=== PATIENT | male | born 1995 | race Caucasian/White ===

== ENCOUNTER 2016-08-29 09:23 | Emergency (ER) | payer OTHER ==
[~2016-08-29] VITALS: Ht 185.4 cm; Wt 114.3 kg
[2016-08-29 09:27] VITALS: TEMP 36.6; Ht 185.4 cm; Wt 114.3 kg
[2016-08-29] MEDS ORDERED: VNTHFA/IN INH (09:43)
[2016-08-29] MEDS ORDERED: ONDANSETRON INJ 2 MG/ML 2 ML VIAL IV STA (09:53)
[2016-08-29] MEDS ORDERED: SODIUM CHLORIDE 0.9% 1000ML 1,000 ML IV STA (09:53)
--- NOTE | 2016-08-29 10:02 | EMERGENCY ROOM VISIT NOTE ---
History First contact with patient: 09:30 Chief Complaint: ABDOMINAL PAIN Stated Complaint: LOWER RIGHT ABDOMINAL PAIN, NAUSEA, BELCHING History of Present Illness The patient is a 21 year old male who presents to the Emergency Room with complaints of abdominal pain. The patient states his symptoms started 2 days ago. He states he initially had abdominal cramping. He states that he developed nausea yesterday. He states that this morning he felt some cramping and pain in the upper abdomen and it has since localized to the right lower quadrant. He reports nausea and belching. He rates his discomfort a 5/10. He denies any fevers. He denies any urinary symptoms. He denies any falls or injuries. The patient drank alcohol Monday night but nothing since. The patient states his last oral intake was applesauce at 2:30 AM. Review of Systems A 10 system review of systems was completed with positives and pertinent negatives listed in the HPI. Social History Smoking Status: Never Smoker Marital Status: single Occupation Status: [employer] student Current/Historical Medications Scheduled PRN Albuterol Hfa (Ventolin Hfa), 2-4 PUFFS INH Q6H PRN for Shortness of Breath Allergies Uncoded Allergies: enviromental (Allergy, Unknown, , 08/29/16) Physical Exam Vital Signs Date Time Temp Pulse Resp B/P Pulse Ox O2 Delivery O2 Flow Rate FiO2 08/29/16 13:03 91 18 152/83 100 Room Air 08/29/16 11:13 68 16 151/76 100 Room Air 08/29/16 09:27 36.6 56 20 159/104 92 Room Air Physical Exam VITALS: Vitals are noted on the nurse's note and reviewed by myself. Vital signs stable. The patient is afebrile. GENERAL: This is a 21-year-old male, in no acute distress, nondiaphoretic, well- developed well-nourished. SKIN: The skin was without rashes, erythema, edema, or bruising. There is no tenting of the skin. Capillary reflex less than 2 seconds. HEAD: Normocephalic atraumatic. EARS: External auditory canals clear, tympanic membranes pearly chang without erythema or effusion bilaterally. EYES: Pupils equal round and reactive to light and accommodation. Conjunctivae without injection, sclerae without icterus. Extraocular movements intact. NOSE: Patent, turbinates without inflammation or discharge. MOUTH: Mucous membranes moist. Tonsils are not enlarged. Pharynx without erythema or exudate. Uvula midline. Airway patent. Tongue does not deviate. NECK: Supple without nuchal rigidity. No lymphadenopathy. No thyromegaly. Cervical spine is nontender. No JVD. HEART: Regular rate and rhythm without murmurs gallops or rubs. LUNGS: Clear to auscultation bilaterally without wheezes, rales or rhonchi. No retractions or accessory muscle use. ABDOMEN: Positive bowel sounds x 4. Marked right lower quadrant tenderness. There is tenderness over McBurney's point. Positive Rovsing's. Positive rebound. Soft, without masses or organomegaly. MUSCULOSKELETAL: No muscle atrophy, erythema, or edema noted. Full range of motion in all extremities. Normal gait. Strength 5/5 throughout. NEURO: Patient was alert and oriented to person place and time. No focal neurological deficits. Medical Decision & Procedures ER Provider Diagnostic Interpretation: CT ABD/PELVIS IV AND ORAL CONT CLINICAL HISTORY: Right lower quadrant abdominal pain COMPARISON STUDY: None. TECHNIQUE: Following the IV administration of 93 mL of Optiray-320, CT scan of the abdomen and pelvis was performed from the lung bases to the proximal femurs. Images are reviewed in the axial, sagittal, and coronal planes. IV contrast was administered without complication. CT DOSE: 638.08 mGy.cm FINDINGS: Lower chest: The heart is normal in size and configuration, without pericardial effusion. The lung bases and pleural spaces are clear. Liver: The contrast-enhanced liver is normal in size, contour, and attenuation. There is no intrahepatic biliary ductal dilatation. The hepatic veins and portal veins are patent. Gallbladder: Unremarkable. Spleen: Normal in size and attenuation. Pancreas: Unremarkable. Adrenal glands: Unremarkable. Kidneys: There is symmetric renal cortical enhancement. The kidneys are normal in size without hydronephrosis. Bowel: There are no transition zones indicate bowel obstruction. There is no acute diverticulitis. There is no evidence of acute appendicitis. Peritoneum: There is no intraperitoneal free air or abdominal ascites. Vasculature: The abdominal aorta is normal in course and caliber. Adenopathy: None. Pelvic viscera: The bladder, and pelvic viscera are unremarkable. Skeletal structures: No destructive osseous lesions are seen. IMPRESSION: 1. No acute intra-abdominal or pelvic findings. 2. No evidence of bowel obstruction. No evidence of free air 3. No evidence of acute appendicitis. No evidence of acute diverticulitis. Laboratory Results 08/29/16 00:00 Red Blood Count 5.50, Mean Corpuscular Volume 86.5, Mean Corpuscular Hemoglobin 30.9, Mean Corpuscular Hemoglobin Concent 35.7, Mean Platelet Volume 10.4, Neutrophils (%) (Auto) 46.9, Lymphocytes (%) (Auto) 34.5, Monocytes (%) (Auto) 8.5, Eosinophils (%) (Auto) 9.6, Basophils (%) (Auto) 0.4, Neutrophils # (Auto) 3.12, Lymphocytes # (Auto) 2.30, Monocytes # (Auto) 0.57, Eosinophils # (Auto) 0.64, Basophils # (Auto) 0.03 08/29/16 00:00 Test 08/29/16 00:00 08/29/16 11:08 White Blood Count 6.67 K/uL (4.8-10.8) Red Blood Count 5.50 M/uL (4.7-6.1) Hemoglobin 17.0 g/dL (14.0-18.0) Hematocrit 47.6 % (42-52) Mean Corpuscular Volume 86.5 fL (80-100) Mean Corpuscular Hemoglobin 30.9 pg (25-34) Mean Corpuscular Hemoglobin Concent 35.7 g/dl (32-36) Platelet Count 239 K/uL (130-400) Mean Platelet Volume 10.4 fL (7.4-10.4) Neutrophils (%) (Auto) 46.9 % Lymphocytes (%) (Auto) 34.5 % Monocytes (%) (Auto) 8.5 % Eosinophils (%) (Auto) 9.6 % Basophils (%) (Auto) 0.4 % Neutrophils # (Auto) 3.12 K/uL (1.4-6.5) Lymphocytes # (Auto) 2.30 K/uL (1.2-3.4) Monocytes # (Auto) 0.57 K/uL (0.11-0.59) Eosinophils # (Auto) 0.64 K/uL (0-0.5) Basophils # (Auto) 0.03 K/uL (0-0.2) RDW Standard Deviation 41.2 fL (36.4-46.3) RDW Coefficient of Variation 12.9 % (11.5-14.5) Immature Granulocyte % (Auto) 0.1 % Immature Granulocyte # (Auto) 0.01 K/uL (0.00-0.02) Anion Gap 10.0 mmol/L (3-11) Est Creatinine Clear Calc Drug Dose 141.9 ml/min Estimated GFR () 111.4 Estimated GFR (Non- 96.1 BUN/Creatinine Ratio 12.6 (10-20) Calcium Level 8.9 mg/dl (8.5-10.1) Total Bilirubin 0.3 mg/dl (0.2-1) Aspartate Amino Transf (AST/SGOT) 29 U/L (15-37) Alanine Aminotransferase (ALT/SGPT) 31 U/L (12-78) Alkaline Phosphatase 100 U/L (45-117) Total Protein 7.7 gm/dl (6.4-8.2) Albumin 4.2 gm/dl (3.4-5.0) Globulin 3.5 gm/dl (2.5-4.0) Albumin/Globulin Ratio 1.2 (0.9-2) Lipase 203 U/L (73-393) Chemistry Specimen Hemolysis Urine Color YELLOW Urine Appearance CLEAR (CLEAR) Urine pH 6.0 (4.5-7.5) Urine Specific [place] 1.017 (1.000-1.030) Urine Protein NEG (NEG) Urine Glucose (UA) NEG (NEG) Urine Ketones NEG (NEG) Urine Occult Blood NEG (NEG) Urine Nitrite NEG (NEG) Urine Bilirubin NEG (NEG) Urine Urobilinogen NEG (NEG) Urine Leukocyte Esterase NEG (NEG) Medications Administered Medications (Trade) Dose Ordered Sig/Nicanor Route Start Time Stop Time Status Last Admin Dose Admin Sodium Chloride (Nss 1000ml) 1,000 ml @ 999 mls/hr Q1H1M STAT IV 08/29/16 09:53 08/29/16 10:53 DC 08/29/16 10:16 999 MLS/HR Ondansetron HCl (Zofran Inj) 4 mg NOW STAT IV 08/29/16 09:53 08/29/16 09:56 DC 08/29/16 10:13 4 MG Morphine Sulfate (MoRPHine SULFATE INJ) 4 mg NOW STAT IV 08/29/16 12:00 08/29/16 12:01 DC 08/29/16 12:13 4 MG ED Course The patient was seen and examined. Previous visits were reviewed the patient does not have a fever or leukocytosis. He does not have any significant electrolyte abnormalities. Lipase is not elevated. Urinalysis was negative. The patient was hydrated with normal saline He was given 4 mg IV Zofran 4 mg IV morphine with improvement in his pain CT scan of the abdomen and pelvis with IV and oral contrast was negative for acute abnormality The patient presented to the emergency department with right lower quadrant abdominal pain. Appendicitis was certainly considered but the CT scan was negative for acute appendicitis. The patient has had pain for over 2 days. The patient's pain may be musculoskeletal in nature. The patient states he did work out before the pain started including abdominal workout. The patient should return with any worsening symptoms. Otherwise, he should follow-up with [facility] later this week. The case was discussed with Dr. Bui who agrees with the assessment and treatment plan. Medical Decision DIFFERENTIAL DIAGNOSIS: Hepatitis, cholecystitis, cholangitis, biliary colic, pancreatitis, pneumonia, subdiaphragmatic abscess, appendicitis, inguinal hernia , nephrolithiasis, inflammatory bowel disease, mesenteric adenitis, peptic ulcer disease, GERD, gastritis, pancreatitis, myocardial infarction, pericarditis, ruptured aortic aneurysm, appendicitis, gastroenteritis, bowel obstruction, splenic infarct, diverticulitis, mesenteric ischemia, metabolic, peritonitis, among others. Impression Primary Impression: Right lower quadrant abdominal pain Departure Information Dispostion Home / Self-Care Condition GOOD Forms HOME CARE DOCUMENTATION FORM, IMPORTANT VISIT INFORMATION, School Instructions Return To School: 1 day Patient Instructions My [employer] Additional Instructions Rest Follow up with [facility] later this week if no improvement Return with worsening symptoms
[2016-08-29] MEDS ORDERED: OPTIRAY 320 IV PRN (10:15)
[2016-08-29 10:19] LABS: BASO % 0.4 %; BASO ABS # 0.03 K/uL (0-0.2); COMPLETE YES; EOS % 9.6 %; HEMATOCRIT 47.6 % (42-52); IG% 0.1 %; LYMPH % 34.5 %; MEAN CELL VOLUME 86.5 fL (80-100); MEAN CORPUSCULAR HEMOGLOBIN 30.9 pg (25-34); MEAN CORPUSCULAR HGB CONC 35.7 g/dl (32-36); MEAN PLATELET VOLUME 10.4 fL (7.4-10.4); MONO % 8.5 %; NEUT % 46.9 %; PLATELET COUNT 239 K/uL (130-400); WHITE BLOOD COUNT 6.67 K/uL (4.8-10.8)
[2016-08-29 10:41] LABS: BUN/CREATININE RATIO 12.6 (10-20); CALCIUM 8.9 mg/dl (8.5-10.1); CREATININE 1.1 mg/dl (0.60-1.40); POTASSIUM 3.8 mmol/L (3.5-5.1)
[2016-08-29 11:05] LABS: ALB/GLOB RATIO 1.2 (0.9-2)
[2016-08-29 11:28] LABS: URINE APPEARANCE CLEAR (CLEAR); URINE BILIRUBIN NEG (NEG); URINE COLOR YELLOW; URINE NITRITE NEG (NEG); URINE SPECIFIC GRAVITY 1.017 (1.000-1.030); UROBILINOGEN NEG (NEG); ZZUR CULT IF INDIC CLEAN CATCH NO
[2016-08-29 11:34] LABS: MANUAL MICROSCOPIC REQUIRED? NO; REVIEW REQ? NO
[2016-08-29] MEDS ORDERED: MoRPHine SULFATE 4 MG/ML 1 ML CARP\\VIAL IV STA (12:00)
--- NOTE | 2016-08-29 12:49 | DIAGNOSTIC IMAGING REPORT ---
CT ABD/PELVIS IV AND ORAL CONT CLINICAL HISTORY: Right lower quadrant abdominal pain COMPARISON STUDY: None. TECHNIQUE: Following the IV administration of 93 mL of Optiray-320, CT scan of the abdomen and pelvis was performed from the lung bases to the proximal femurs. Images are reviewed in the axial, sagittal, and coronal planes. IV contrast was administered without complication. CT DOSE: 638.08 mGy.cm FINDINGS: Lower chest: The heart is normal in size and configuration, without pericardial effusion. The lung bases and pleural spaces are clear. Liver: The contrast-enhanced liver is normal in size, contour, and attenuation. There is no intrahepatic biliary ductal dilatation. The hepatic veins and portal veins are patent. Gallbladder: Unremarkable. Spleen: Normal in size and attenuation. Pancreas: Unremarkable. Adrenal glands: Unremarkable. Kidneys: There is symmetric renal cortical enhancement. The kidneys are normal in size without hydronephrosis. Bowel: There are no transition zones indicate bowel obstruction. There is no acute diverticulitis. There is no evidence of acute appendicitis. Peritoneum: There is no intraperitoneal free air or abdominal ascites. Vasculature: The abdominal aorta is normal in course and caliber. Adenopathy: None. Pelvic viscera: The bladder, and pelvic viscera are unremarkable. Skeletal structures: No destructive osseous lesions are seen. IMPRESSION: 1. No acute intra-abdominal or pelvic findings. 2. No evidence of bowel obstruction. No evidence of free air 3. No evidence of acute appendicitis. No evidence of acute diverticulitis. Electronically signed by: Bran Lagunas M.D. 08/29/2016 12:48 PM Dictated Date/Time: 08/29/2016 12:45 PM
[2016-08-29 13:03] VITALS: BP 152/83; PULSE 91; O2SAT 100
== END 2016-08-29 13:24 | disposition home or self-care (01) ==
LOC: C.EDB 09:27 → C.EDA 13:24
DX: R10.31 Right lower quadrant pain (principal); R11.0 Nausea; R14.2 Eructation

== ENCOUNTER 2016-12-13 19:16 | Emergency (ER) | payer OTHER ==
[~2016-12-13] VITALS: Ht 185.4 cm; Wt 105.0 kg
[~2016-12-13 19:16] MED LIST: VNTHFA/IN INH
[2016-12-13 19:19] VITALS: TEMP 36.8; Ht 185.4 cm; Wt 105.0 kg
--- NOTE | 2016-12-13 19:59 | DIAGNOSTIC IMAGING REPORT ---
LEFT KNEE 3 VIEWS CLINICAL HISTORY: Left knee pain TRAUMA COMPARISON: None. DISCUSSION: No fractures or dislocations are visualized. There is mild lateral patellar tilt. There is no radiographic evidence of a significant joint effusion IMPRESSION: No acute fractures identified. Electronically signed by: Bran Lagunas M.D. 12/13/2016 7:57 PM Dictated Date/Time: 12/13/2016 7:57 PM
[2016-12-13] MEDS ORDERED: OXYC1TAB3 PO (20:28)
--- NOTE | 2016-12-13 20:59 | EMERGENCY ROOM VISIT NOTE ---
History First contact with patient: 19:23 Chief Complaint: KNEEPAIN Stated Complaint: THROBBING PAIN IN KNEE, HEARD POP WHEN INJURED History of Present Illness The patient is a 21 year old male who presents to the Emergency Room with complaints of left knee pain. The patient reports that he injured his knee tonight playing basketball. He went up for a block and when he landed, believes that he hyperextended his knee. He reports feeling a popping sensation in the back of the knee. He currently denies any pain extending into the posterior thigh or calf. He denies any paresthesias or numbness of the left foot or toes, and rates his pain a 9 out of 10 with weightbearing. Review of Systems 10 system review was performed and was negative except for pertinent positives and negatives as indicated in history of present illness Past Medical/Surgical History Medical Problems: (1) No significant past medical history Surgical Problems: (1) No history of previous surgery Social History Smoking Status: Current Some Day Smoker Alcohol Use: occasionally Marital Status: single Occupation Status: [employer] student Current/Historical Medications Scheduled PRN Albuterol Hfa (Ventolin Hfa), 2 PUFFS INH Q6H PRN for Shortness of Breath Oxycodone Ir (Roxicodone Ir), 1-2 TAB PO Q4H PRN for Pain Allergies Uncoded Allergies: enviromental (Allergy, Unknown, , 08/29/16) Physical Exam Vital Signs Date Time Temp Pulse Resp B/P (MAP) Pulse Ox O2 Delivery O2 Flow Rate FiO2 12/13/16 19:19 36.8 80 16 126/69 97 Room Air Physical Exam CONSTITUTIONAL: Healthy and well nourished. Alert and oriented X 3 with positive affect. Patient does not appear in any significant distress on exam. HEENT: Normocephalic, atraumatic. Pupils equal, round and reactive. NECK: Full active range of motion without discomfort. MUSCULOSKELETAL: Examination of the left lower extremity does not show any obvious ecchymosis or erythema. He is mildly tender through the posterior hamstrings. No popliteal masses noted. He has mild tenderness to the upper gastroc region. No focal tenderness to the medial lateral joint line. Passive range of motion of the knee does not cause significant discomfort. Collateral ligaments are intact. No obvious anterior or posterior draw, although this was very difficult to test because of the patient's muscular hypertrophy/ development. INTEGUMENTARY: No rash or other significant dermatologic conditions noted. NEUROLOGIC: No focal neurologic deficits noted. Medical Decision & Procedures ER Provider Diagnostic Interpretation: My interpretation of left knee x-rays does not show any obvious bony injuries or joint effusion. Radiologist report was also reviewed. ED Course Patient history and physical exam were performed. Nurse's notes were reviewed. Vital signs were reviewed and normal. X-rays of the left knee were normal. The patient was provided a home pack and prescription for OxyIR 5 mg. A knee immobilizer and crutches were dispensed. The patient was instructed to follow- up with [facility] for further reevaluation and management. Ice and elevation for swelling. Ibuprofen and Tylenol for additional baseline pain relief. The patient was happy with plan of care, voice understanding of all discharge instructions, and rated his pain a 9 out of 10 at the conclusion of my exam, and prior to being given his pain medications for discharge. Medical Decision Impression Primary Impression: Left knee injury Departure Information Dispostion Home / Self-Care Prescriptions Oxycodone Ir (Roxicodone Ir) 5 Mg Tab 1-2 TAB PO Q4H Y for Pain, #15 TAB For Initial Treatment Prov: Berto West PA 12/13/16 Referrals Nicholas Michel D.O. Forms HOME CARE DOCUMENTATION FORM, IMPORTANT VISIT INFORMATION Patient Instructions My [facility] Additional Instructions Ice and elevate knee for swelling and pain. Wear knee immobilizer when up and about. Use crutches - minimal weight on foot. Ibuprofen 800 mg and/or Tylenol 1000 mg every 8 hours. You may also alternate these medications for more effective pain relief: Ibuprofen --4 HRS--> Tylenol --4 HRS--> ibuprofen --4 HRS--> Tylenol .... OxyIR if needed for additional pain relief. Do not drink or drive while taking OxyIR. Follow-up with [facility] (Dr. Michel) for further evaluation and treatment - call tomorrow AM for appointment.
[2016-12-13] MEDS ORDERED: OXYCODONE IR HOME PACK PO ONE (21:00)
[2016-12-13 21:02] VITALS: BP 145/72; PULSE 70; O2SAT 99
== END 2016-12-13 21:10 | disposition home or self-care (01) ==
LOC: C.EDB 19:17 → C.EDD 21:10
DX: S89.92XA Unspecified injury of left lower leg, initial encounter (principal); X50.9XXA Other and unspecified overexertion or strenuous movements or postures, initial encounter; F17.200 Nicotine dependence, unspecified, uncomplicated